=== PATIENT | male | born 1995 | race Caucasian/White ===

== ENCOUNTER 2017-03-06 19:30 | Emergency (ER) | payer SELFPAY ==
[2017-03-06 19:41] VITALS: O2SAT 98
--- NOTE | 2017-03-06 21:16 | C.PDOC ---
History Of Present Illness 21 year old male with no significant PMHx presents to the ED with complaints of left sided chest pain exacerbated by breathing beginning one hour SLEEVER. Patient reports chills and body aches. Patient notes recent travel from [place] 10 days ago. He did not take anything for pain. Patient denies cough, headache, shortness of breath, leg pain, recent immobilization state or other complaints. Time Seen by Provider: 03/06/17 20:09 Chief Complaint (Nursing): Chest Pain History Per: Patient, Orthotic And Prosthetic Technician (relative- with pt's consent) History/Exam Limitations: no limitations Onset/Duration Of Symptoms: Hrs (1 hr SLEEVER ) Current Symptoms Are (Timing): Still Present Severity: Moderate Quality: "Pain" Associated Symptoms: denies: Nausea, Dyspnea, Diaphoresis, Syncope Exacerbating Factors: Movement, Deep Breathing Alleviating Factors: None Recent travel outside of the [place]: Yes ([place]) Past Medical History Reviewed: Historical Data, Nursing Documentation, Vital Signs Vital Signs: Last Vital Signs Temp 98.0 F 03/07/17 00:09 Pulse 84 03/07/17 00:09 Resp 20 03/07/17 00:09 BP 124/76 03/07/17 00:09 Pulse Ox 98 03/07/17 00:09 Family History: States: Unknown Family Hx - Social History Hx Alcohol Use: Yes Hx Substance Use: No - Immunization History Hx Tetanus Toxoid Vaccination: No Hx Influenza Vaccination: No Review Of Systems Constitutional: Positive for: Chills, Other (body aches ) Cardiovascular: Positive for: Chest Pain. Negative for: Palpitations Respiratory: Negative for: Cough, Shortness of Breath Gastrointestinal: Negative for: Nausea, Vomiting, Abdominal Pain Musculoskeletal: Negative for: Neck Pain Neurological: Negative for: Headache Physical Exam - Physical Exam Appears: Non-toxic, No Acute Distress Skin: Warm, Dry, No Rash Head: Atraumatic, Normacephalic, No Tenderness Eye(s): bilateral: Normal Inspection, PERRL, EOMI Oral Mucosa: Moist Neck: Normal ROM, Supple Chest: Symmetrical, No Deformity, Tenderness (left anterior chest wall ) Cardiovascular: Rhythm Regular (tachycardic), No Murmur Respiratory: Normal Breath Sounds, No Rales, No Rhonchi, No Wheezing Gastrointestinal/Abdominal: Soft, No Tenderness, No Distention, No Guarding, No Rebound Extremity: Normal ROM, No Tenderness Neurological/Psych: Oriented x3, Normal Motor, Normal Sensation Gait: Steady ED Course And Treatment - Laboratory Results Result Diagrams: 03/06/17 21:37 03/06/17 21:37 ECG: Interpreted By Me, Viewed By Me ECG Rhythm: Sinus Tachycardia Rate From EC O2 Sat by Pulse Oximetry: 98 (RA) Pulse Ox Interpretation: Normal - CT Scan/US CT angio chest Other Rad Studies (CT/US): Read By Radiologist, Radiology Report Reviewed CT/US Interpretation: EXAM: CT Angiography Chest With Intravenous Contrast. CLINICAL HISTORY: 21 years old, male; Pain; Chest pain; Additional info: Chest pain, abn dimer. TECHNIQUE: Axial computed tomographic angiography images of the chest with intravenous contrast using. pulmonary embolism protocol. All CT scans at this facility use one or more dose reduction. techniques, viz.: automated exposure control; ma/kV adjustment per patient size (including targeted. exams where dose is matched to indication; i.e. head); or iterative reconstruction technique. MIP reconstructed images were created and reviewed. Coronal and sagittal reformatted images were created and reviewed. CONTRAST: 100 mL of [id number] administered intravenously. COMPARISON: No relevant prior studies available. FINDINGS: Pulmonary arteries: No pulmonary embolism. Aorta: No thoracic aortic aneurysm. Lungs: No mass. No consolidation. Pleural spaces: No significant effusion. No pneumothorax. Heart: No cardiomegaly. No significant pericardial effusion. No evidence of right heart dysfunction. Bones: No acute fracture. Lymph nodes: No pathologically enlarged lymph nodes. The liver is markedly enlarged. IMPRESSION: No pulmonary embolism. The lungs are clear. Medical Decision Making Medical Decision Making: EKG, CXR, and D-Dimer were ordered. Patient was given Motrin. On reassessment , pt reports improved pain after pain meds. Labs , CXR, EKG and Chest CTA results were reviewed and d/w pt. Pt is in NAD , VSS. Follwo up instructions given and return precautions were discussed and pt expressed understanding. Translated by relative with pt's consent Disposition Counseled Patient/Family Regarding: Studies Performed, Diagnosis, Need For Followup, Rx Given - Disposition Referrals: [facility] [Outside] [facility] [Outside] Disposition: HOME/ ROUTINE Disposition Time: 00:03 Condition: STABLE Additional Instructions: Take meds as directed Follow up in clinic Return to ER if worsening of Chest pain, difficulty breathing, palpitations , fever or worse Prescriptions: Ibuprofen [Motrin] 600 mg PO Q6H #20 tab Instructions: Chest Wall Pain (ED) Forms: [facility] (Greenlandic) - Clinical Impression Clinical Impression: Chest wall pain - 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 - Scribe Statement The provider has reviewed the documentation as recorded by the Scribdelfin Patel All medical record entries made by the Kvngibdelfin were at my direction and personally dictated by me. I have reviewed the chart and agree that the record accurately reflects my personal performance of the history, physical exam, medical decision making, and the department course for this patient. I have also personally directed, reviewed, and agree with the discharge instructions and disposition.
[2017-03-06] MEDS ORDERED: Enoxaparin 40 mg Syringe SC STA (21:32)
[2017-03-06] MEDS ORDERED: Oxycodone/Acetaminophen 5/325 mg Tab PO STA (21:37)
[2017-03-06] MEDS ORDERED: Enoxaparin 80 mg Syringe ONE (21:40)
[2017-03-06 21:41] LABS: BASO % 0.4 % (0.0-2.0); HEMATOCRIT 34.6 % (35.0-51.0); LYMPH # 0.4 K/uL (1.0-4.3); LYMPH % 4.7 % (20.0-40.0); MEAN CELL VOLUME 62.2 fL (80.0-94.0); MEAN CORPUSCULAR HEMOGLOBIN 18.9 pg (27.0-31.0); MEAN CORPUSCULAR HGB CONC 30.3 g/dL (33.0-37.0); MEAN PLATELET VOLUME 9.1 fL (7.2-11.7); MONO # 0.5 K/uL (0.0-0.8); MONO % 5.8 % (0.0-10.0); NRBC % 0.1 % (0.0-2.0); PLATELET COUNT 220 K/uL (130-400); RED CELL DISTRIBUTION WIDTH 16.8 % (11.5-14.5); WHITE BLOOD COUNT 9.2 K/uL (4.8-10.8)
[2017-03-06] MEDS ORDERED: Oxycodone/Acetaminophen 5/325 mg Tab ONE (21:59)
[2017-03-06 22:09] LABS: BLOOD UREA NITROGEN 10 mg/dL (9-20); CALCIUM 8.5 mg/dl (8.6-10.4); CARBON DIOXIDE 25 mmol/L (22-30); CHLORIDE 99 mmol/L (98-107); GFR AFRICAN-AMERICAN > 60; GLUCOSE,RANDOM 92 mg/dL (75-110); POTASSIUM 3.3 mmol/L (3.6-5.2); SODIUM 134 mmol/L (132-148)
[2017-03-06] MEDS ORDERED: Iodixanol 320 MG/ML 100 ML BOTTLE IV ONE (22:10)
[2017-03-06 22:19] LABS: EOSINOPHIL 1 % (0-4); NEUTROPHIL 90 % (50-75); TOTAL CELLS COUNTED 100
[2017-03-06] MEDS ORDERED: Sodium Chloride 0.9% 500 ML IV ONE (22:21)
--- NOTE | 2017-03-06 23:30 | CT ---
EXAM: CT Angiography Chest With Intravenous Contrast CLINICAL HISTORY: 21 years old, male; Pain; Chest pain; Additional info: Chest pain, abn dimer TECHNIQUE: Axial computed tomographic angiography images of the chest with intravenous contrast using pulmonary embolism protocol. All CT scans at this facility use one or more dose reduction techniques, viz.: automated exposure control; ma/kV adjustment per patient size (including targeted exams where dose is matched to indication; i.e. head); or iterative reconstruction technique. MIP reconstructed images were created and reviewed. Coronal and sagittal reformatted images were created and reviewed. CONTRAST: 100 mL of administered intravenously. COMPARISON: No relevant prior studies available. FINDINGS: Pulmonary arteries: No pulmonary embolism. Aorta: No thoracic aortic aneurysm. Lungs: No mass. No consolidation. Pleural spaces: No significant effusion. No pneumothorax. Heart: No cardiomegaly. No significant pericardial effusion. No evidence of right heart dysfunction. Bones: No acute fracture. Lymph nodes: No pathologically enlarged lymph nodes. The liver is markedly enlarged. IMPRESSION: No pulmonary embolism. The lungs are clear.
[2017-03-07 00:10] VITALS: BP 124/76; PULSE 84; RESP 20; TEMP 98
--- NOTE | 2017-03-07 10:22 | RAD ---
HISTORY: chest pain COMPARISON: No prior. TECHNIQUE: Chest PA and lateral FINDINGS: LUNGS: No active pulmonary disease. PLEURA: No significant pleural effusion identified. No pneumothorax apparent. CARDIOVASCULAR: Normal. OSSEOUS STRUCTURES: No significant abnormalities. VISUALIZED UPPER ABDOMEN: Normal. OTHER FINDINGS: None. IMPRESSION: No active disease.
== END 2017-03-07 00:24 | disposition home or self-care (01) ==
LOC: C.ER 19:30 → SUPCPDRO 19:30 → C.ER 03-07 00:24
DX: R07.89 Other chest pain (principal)
CPT/HCPCS: 71020; 71275; 80048; 85025; 85378; 96372; 99284; J1650; J7040; Q9967